=== PATIENT | male | born 1935 | race Caucasian/White ===

== ENCOUNTER 2016-11-28 03:18 | Observation (INO) | payer OTHER ==
--- NOTE | 2016-11-27 09:34 | History & Physical Pre-Op ---
General Information and HPI History of Present Illness: patient presents for evaluation of an inguinal hernia, right-sided. He also has a long-standing umbilical hernia which has been observed for many years. More recently has noted acute onset of extreme right inguinal pain associated with the bulge. His son is a nurse and instructed him to lie flat and put ice pack on it and it was able to be reduced on multiple occasions. He went to the emergency room at which time an ultrasound of his testicle was performed which showed a hydrocele. Subsequent evaluation by urologist revealed inguinal hernia as well as a hydrocele, is referred to our office for further management. Allergies/Medications Allergies: Coded Allergies: NO KNOWN ALLERGIES (06/13/16) Home Med list Aspirin (Ecotrin*) 81 MG TABLET.DR 1 TAB PO DAILY HEART/BLOOD (Reported) Diltiazem HCl (Cardizem Cd) 180 MG CAP.ER.24H 1 CAP PO DAILY Atrial Fibrillation/Flutter Finasteride 5 MG TABLET 1 TAB PO DAILY PROSTATE (Reported) Furosemide 20 MG TABLET 1 TAB PO BID DIURETIC (Reported) Latanoprost 2.5 ML DROPS 1 GTT OPH QPM BOTH EYES (Reported) Metoprolol Succinate 25 MG TAB 1 TAB PO BID HEART/BLOOD (Reported) Omeprazole 40 MG CAPSULE.DR 1 CAP PO DAILY GI (Reported) Spironolactone 25 MG TABLET 1 TAB PO DAILY DIURETIC (Reported) Tamsulosin HCl (Flomax) 0.4 MG CAP.ER.24H 1 CAP PO DAILY@2200 BPH Warfarin Sodium (Coumadin) 5 MG TABLET 1 TAB PO DAILY BLOOD THINNER (Reported ) Past History Medical History Neurological: ENCEPHALOPATHY EENT: NONE Cardiovascular: AFIB Respiratory: NONE Gastrointestinal: pancreatitis, GASTIC ULCER-RUPTURED january 2014 Hepatic: jaundice, LIVER FAILURE LIVER LESION Renal: acute tubular necrosis Musculoskeletal: degen joint disease, L HIP REPL Psychiatric: NONE Endocrine: NONE Blood Disorders: NONE Cancer(s): NONE 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 He reports urinary loss of control. He reports no fatigue, no fever, no night sweats, no significant weight gain, no significant weight loss, and no exercise intolerance. He reports no abnormal moles, no jaundice, no hives, no eczema, and no rashes. He reports no dry eyes, no irritation, no vision change, and no discharge. He reports no swollen glands and no neck stiffness. He reports no cough, no wheezing, no shortness of breath, and no coughing up blood. He reports no chest pain, no arm pain on exertion, no shortness of breath when walking, no shortness of breath when lying down, no palpitations, and no known heart murmur. He reports no muscle aches, no muscle weakness, no arthralgias/joint pain, and no back pain. Exam & Diagnostic Data Physical Exam: Patient is a 81-year-old male. Constitutional: General Appearance: healthy-appearing, well-nourished, and well- developed. Level of Distress: no acute distress. Ambulation: ambulating normally. Head: Head: normocephalic and atraumatic. Neck: Neck: supple, trachea midline, no masses, and full range of motion. Thyroid: no enlargement or nodules and non-tender. Lymph Nodes: no cervical LAD, supraclavicular LAD, axillary LAD, or inguinal LAD. Cardiovascular: Heart Auscultation: normal S1 and S2; no murmurs, rubs, or gallops; and regular rate and rhythm. Lungs: Respiratory effort: no dyspnea. Percussion: no dullness, flatness, or hyperresonance. Auscultation: no wheezing, rales/crackles, or rhonchi and breath sounds normal, good air movement, and clear to auscultation. Back: Thoracolumbar Appearance: normal curvature. Abdomen: Inspection and Palpation: no tenderness, guarding, masses, rebound tenderness, or CVA tenderness and soft and non-distended. Bowel Sounds: normal. Liver: non-tender and no hepatomegaly. Spleen: non-tender and no splenomegaly. Hernia: inguinal (small reducible right inguinal hernia. Separate, distinct moderate sized hydrocele of the right testicle) and periumbilical (reducible with 3 cm defect). Skin: Inspection and palpation: no rash, lesions, ulcer, induration, nodules, jaundice, or abnormal nevi and good turgor. Musculoskeletal:: Extremities: no cyanosis, edema, varicosities, or palpable cord. Motor Strength and Tone: normal tone and motor strength. Joints, Bones, and Muscles: no contractures, malalignment, tenderness, or bony abnormalities and normal movement of all extremities. Psychiatric: Insight: good judgement and insight. Mental Status: normal mood and affect and active and alert. Orientation: to time, place, and person. Memory: recent memory normal and remote memory normal. Assessment/Plan Assessment/Plan: 1. Right inguinal hernia - intermittent obstructive symptoms related to it warrants elective repair. Recommend laparoscopic right inguinal hernia repair with mesh K40.90: Unilateral inguinal hernia, without obstruction or gangrene, not specified as recurrent 2. Umbilical hernia - this hernia should be repaired concurrently to his inguinal hernia. Plan will be to repair open with mesh. K42.9: Umbilical hernia without obstruction or gangrene 3. Hydrocele - right sided. It is distinct from his inguinal hernia and treatment of it would require hydrocelectomy. Given his comorbidities and lack of symptoms related to it, needle aspiration and/or observation will be recommended N43.3: Hydrocele, unspecified Patient Instructions patient will need cardiac clearance. Family understands and will make arrangements to see his hand hardener for preoperative risk assessment. He will need to come off his Coumadin 5 days preoperatively. Discussion Notes Discussed laparoscopic preperitoneal hernia repair with mesh, the need for general anesthesia to perform it and the outpatient nature of surgery. Discussed the outcomes of surgery including 3-5% recurrence rate, 1% infection and bleeding risk. Discussed the permanent nature of mesh for repair and need for removal if infection occurs. Discussed the small risk of testicular vessel injury and vas deferens injury (males). Discussed the pathophysiology of umbilical hernia and the need for repair to prevent incarceration/ strangulation of bowel. Discussed the potential need for mesh placement depending on the size of the defect. Patient understands the perment nature of mesh. Discussed the risks of surgery including bleeding, infection and recurrence of the hernia. Discussed emergent complications of oberved hernias including increasing pain, distention, nausea and vomiting. Discussed erythema of hernia site as well. Patient understands to call me urgently or go to ER should these findings develop. As Ranked By This Provider Problem List: 1. Right inguinal hernia 2. Umbilical hernia without obstruction or gangrene 3. Hydrocele
[~2016-11-28] VITALS: Ht 177.8 cm; Wt 76.2 kg
[~2016-11-28 03:18] MED LIST: ASPIR 8181 MG PO; ASPIRIN EC81 M1 PO; AUGMENTIN 875875 MG PO; CARDIZEM CD180 M1 PO; CIPRO250 M1 PO; COUMADIN 4MG TAB4 MG PO; COUMADIN5 M2 PO; FINASTERIDE5 M1 PO; FLOMAX0.4 M1 PO; FUROSEMIDE20 M1 PO; LATANOPROST2.5 ML OPH; MAGNESIUM200 MG PO; METOPROLOL SUCC25 M1 PO; METOPROLOL SUCC25 MG PO; NIFEDICAL XL30 M1 PO; NIFEDIPINE30 MG PO; NORVASC5 M1 PO; OMEPRAZOLE40 M1 PO; OMEPRAZOLE40 MG PO; SPIRONOLACTONE25 M1 PO; TRAVATAN Z50 GTT/1 B OPH; WARFARIN SOD5 MG PO
[2016-11-28 06:59] LABS: PT 13.9 SEC (9.4-12.5)
--- NOTE | 2016-11-28 09:44 | Admission Core Measures ---
Admission Lab Results I reviewed the following labs: Laboratory Tests 11/28 0630 Coagulation PT (9.4 - 12.5 SEC) 13.9 H INR (0.90 - 1.17) 1.33 H Admission Meds I reviewed the following Meds: Current Medications Sig/Aurea Start time Last Medication Dose Stop Time Status Admin Cefazolin Sodium 2,000 MG ONCE 11/28 0000 NR (Kefzol-Ancef Inj) 11/28 2359 Acute Coronary Syndrome Inclusion Criteria ACS Diagnosis No Inpatient Core Measures LDL Reminder: If No, please order W/I first 24hr of stay Congestive Heart Failure Inclusion Criteria CHF Diagnosis No Cerebrovascular accident Inclusion Criteria CVA/TIA Diagnosis No Inpatient Core Measures Bedside Swallow Eval Reminder: If BSE failed, place ST order Antithrombotic Reminder: Order Antithrombotic Medication by end of day 2 Antithrombotic Reminder: Document Reason Antithrombotic Not ordered by end of day 2 AFIB/Flutter Reminder: If Present, add to problem list AFIB/Flutter Reminder: Order Anticoag Medication for pts with AFIB/Flutter Atherosclerosis Reminder: If Present, add to problem list LDL Reminder: If No, please order W/I first 24hr of stay PT Order Reminder: If No, please order Venous thromboembolism Inpatient Core Measures VTE Risk Factors: Age > 40 VTE Prophylaxis Ordered Inpt Mech & Pharm No Mech VTE prophylaxis d/t No contraindications No VTE Pharm Prophylaxis d/t No contraindications Inclusion Criteria - Per Current guidelines, there needs to be overlap - treatment for the first 5 days of Warfarin therapy. - Parenteral Anticoagulation (IV or SC) needs to be - given along with Warfarin therapy. VTE Diagnosis No VTE Type NONE VTE Confirmed by (Test) NONE Problem List As ranked by this Provider includes Assessment & Plan 1. New onset atrial fibrillation 2. S/P inguinal hernia repair using synthetic patch HOME MEDS Home Med List Aspirin (Ecotrin*) 81 MG TABLET.DR 1 TAB PO DAILY HEART/BLOOD (Reported) Diltiazem HCl (Cardizem Cd) 180 MG CAP.ER.24H 1 CAP PO DAILY Atrial Fibrillation/Flutter Finasteride 5 MG TABLET 1 TAB PO DAILY PROSTATE (Reported) Furosemide 20 MG TABLET 1 TAB PO BID DIURETIC (Reported) Latanoprost 2.5 ML DROPS 1 GTT OPH QPM BOTH EYES (Reported) Metoprolol Succinate 25 MG TAB 1 TAB PO BID HEART/BLOOD (Reported) Omeprazole 40 MG CAPSULE.DR 1 CAP PO DAILY GI (Reported) Spironolactone 25 MG TABLET 1 TAB PO DAILY DIURETIC (Reported) Tamsulosin HCl (Flomax) 0.4 MG CAP.ER.24H 1 CAP PO DAILY@2200 BPH Warfarin Sodium (Coumadin) 5 MG TABLET 1 TAB PO DAILY BLOOD THINNER (Reported )
[2016-11-28 12:50] VITALS: BP 138/70
--- NOTE | 2016-11-28 12:57 | Operative Report ---
Operative/Inv Procedure Report Surgery Date: 11/28/16 Name of Procedure: 1. Umbilical hernia repair with mesh 2. Laparoscopic right inguinal hernia repair Pre-Operative Diagnosis: Umbilical hernia Right inguinal hernia Post-Operative Diagnosis: Same same Estimated Blood Loss: scant Surgeon/Senior Gl Accountant: ROMAIN CRONIN,CHAS Diaz/Netta DALTON Anesthesia: general endotracheal tube Implants: Parietex right inguinal hernia mesh Ventrex umbilical hernia mesh Operative/Procedure Note Note: After consent is brought to the operating room and laid supine. Gen. anesthesia was obtained and his abdomen was prepped and draped. The skin below the umbilicus after local anesthesia transverse incision made sharply. We dissected down to the right-sided rectus fascia and incised transversely. Stay sutures placed. The rectus muscles retracted laterally and a plane behind it developed with a peanut. The dissecting balloon was then placed on the level of pubis and inflated under direct vision and camera. It was deflated and removed and replaced with a blunt Rueda port. Gas was instilled. 2, 5 mm ports were placed in from vocal midline after local anesthesia was instilled and under direct vision and camera. Began or dissection the pubis and delineated the symphysis. There is no direct hernia. We came laterally and developed the iliopubic tract. There is a very large indirect sac which was delivered and peeled off of the cord structures bluntly. It took quite a bit of dissection but eventually her to get the sac out as well as a large cord lipoma. We then placed a piece of Parietex keyhole mesh into the cavity. It was placed around the cord structures re-create a new internal ring. Cover the femoral indirect spaces. Once I was happy with the placement of mesh the gas was allowed to escape on maintaining proper orientation of it. The ports then removed and the fascia closed with 0 Vicryl suture. We then turned attention to the umbilical hernia. The periumbilical incision was lengthened and a curvilinear in fashion. The umbilical stalk was then circumvention dissected and transected with cautery. Were then able to expose a very large hernia sac. The fascial edges were incised down the neck of the hernia with cautery. The contents were then able to be reduced completely. Given the size the defect which approximated 2.5 cm, mesh repair was undertaken. Preperitoneal planes were circumferentially made bluntly. A 6.4 cm ventral X mesh was then placed in the cavity and unraveled below the defect. The fascia was closed over the mesh with interrupted 0 Maxon sutures while incorporating the anterior portion of the mesh to keep it centered. The wound was irrigated with normal saline. The umbilical stock was re-created 3-0 Vicryl. Skin incisions closed with 4-0 Vicryl. Steri- Strips and sterile dressing applied. Sponge and needle counts are correct CC: NETTA CRONIN,Gustavo ROPER; FAM CRONIN,IMMANUEL Fernandez
--- NOTE | 2016-11-28 15:03 | PN- General Surgery ---
Subjective Subjective: Awake, alert post op Pt speaks mostly Malay but has a family member at the bedside to help translate No complaints he is in no pain and denies any nausea He has already eaten a full tray of regular food without any pain or nausea +void Objective Vital Signs and I&Os Vital Signs Date Time Temp Pulse Resp B/P Pulse O2 O2 Flow FiO2 Ox Delivery Rate 11/28 1250 98.4 68 18 138/70 96 Room Air Intake & Output 11/28 1600 11/28 0800 11/28 0000 11/27 1600 11/27 0800 11/27 0000 Intake Total Output Total 100 Balance -100 Output, Urine 100 Patient 168 lb Weight Physical Exam: afebrile, vss General: alert and oriented times three Chest: clear anteriorly bilaterally, RRR Abd: soft, good bs, nondistended Wounds: dressed, dry Ext: warm, no edema Current Medications: Current Medications Sig/Aurea Start time Last Medication Dose Route Stop Time Status Admin Aspirin Buffered 81 MG DAILY 11/29 1000 AC PO Bupivacaine HCl/ 10 ML .STK-MED ONE 11/28 0932 DC Epinephrine Bitart SC 11/28 0933 Cefazolin Sodium 2,000 MG ONCE 11/28 0000 DC IV 11/28 2359 Diltiazem HCl 180 MG DAILY 11/29 1000 AC PO Docusate Sodium 100 MG DAILY NEEDED PRN 11/28 1215 AC PO Finasteride 5 MG DAILY 11/29 1000 AC PO Furosemide 20 MG BID 11/28 2200 AC PO Metoprolol Tartrate 25 MG BID 11/28 2200 AC PO Morphine Sulfate 2 MG Q3P PRN 11/28 1215 AC IV Omeprazole 40 MG DAILY AC 11/29 0700 AC PO Ondansetron HCl 4 MG Q8P PRN 11/28 1215 AC IV Oxycodone/ 1 TAB Q4P PRN 11/28 1215 AC Acetaminophen PO Oxycodone/ 2 TAB Q4P PRN 11/28 1215 AC Acetaminophen PO Sodium Chloride 1,000 ML .Q20H 11/28 1215 AC 11/28 IV 1306 Spironolactone 25 MG DAILY 11/29 1000 AC PO Tamsulosin HCl 0.4 MG DAILY@2200 11/28 2200 AC PO Warfarin Sodium 5 MG COUMADIN 1700 ONE 11/28 1700 AC PO 11/28 1701 Assessment/Plan Assessment/Plan 81 yo male s/p lap RIH, umbilical hernia repair Regular diet pain mgmt dc IVF tele overnight per Dr Reyna coumadin restarted plan to dc in am if all ok overnight Core Measures/Miscellaneous Venous Thromboembolism VTE Risk Factors: Age > 40, Surgery VTE Contraindications: No Contraindications VTE Prophylaxis Ordered Inpt Mech & Pharm VTE Diagnosis: No VTE Type: NONE VTE Confirmed by (Test): NONE Beta Tara Is Beta Tara a Home Med? Yes If Yes, Was This Ordered Today? No Antibiotics Is Patient on Antibiotics? No
--- NOTE | 2016-11-28 15:06 | Patient Discharge Instructions ---
Discharge Instructions General Discharge Information You were seen/treated for: Inguinal hernia and umbilical hernia You had these procedures: Lap Right inguinal hernia repair, Umbilical hernia repair - both with mesh Watch for these problems: temp>101, increased redness or drainage of wounds, increased abdominal pain No bath, but you may shower: Yes Other wound care: Keep wounds clean and dry, may shower but no bathing or soaking Special Instructions: Follow up with an INR on Sunday 12/03, results to Dr Reyna - coumadin dosing will be determined by Dr Reyna. Take your regular dose of 5 mg daily until then. Diet Recommended Diet: Heart Healthy Activity Activity Self Limited: Yes Pounds, do NOT lift more than: 10 Acute Coronary Syndrome Inclusion Criteria At DC or during hospital stay patient has or had the following: ACS DIAGNOSIS No Discharge Core Measures Meds if any: Prescribed or Continued at Discharge Meds if any: NOT Prescribed or Continued at Discharge Congestive Heart Failure Inclusion Criteria At DC or during hospital stay patient has or had the following: CHF DIAGNOSIS No Discharge Core Measures Meds if any: Prescribed or Continued at Discharge Meds if any: NOT Prescribed or Continued at Discharge Cerebrovascular accident Inclusion Criteria At DC or during hospital stay patient has or had the following: CVA/TIA Diagnosis No Discharge Core Measures Meds if any: Prescribed or Continued at Discharge Meds if any: NOT Prescribed or Continued at Discharge Venous thromboembolism Inclusion Criteria VTE Diagnosis No VTE Type NONE VTE Confirmed by (Test) NONE Discharge Core Measures - Per Current guidelines, there needs to be overlap - treatment for the first 5 days of Warfarin therapy. - If discharged on Warfarin prior to 5 days of - overlap therapy, the patient will need to be - assessed for post discharge needs including - *Post discharge parental anticoagulation - *Warfarin and/or parental anticoagulation education - *Follow up date to check INR post discharge At least 5 days overlap therapy as Inpatient No Meds if any: Prescribed or Continued at Discharge Note: Overlap Therapy is Warfarin and Anticoagulant Meds if any: NOT Prescribed or Continued at Discharge
[2016-11-28] MEDS ORDERED: PERCOCET 5-3251 EACH PO (15:08)
[2016-11-28 15:47] VITALS: BP 130/72
[2016-11-28 20:55] VITALS: BP 142/66
[2016-11-28 22:41] VITALS: BP 124/66
[2016-11-29 08:28] LABS: PT 14.3 SEC (9.4-12.5)
[2016-11-29 08:40] VITALS: BP 132/69
--- NOTE | 2016-11-29 09:29 | PN- General Surgery ---
See Addendum Subjective Subjective: Awake, alert No complaints overnight Pain well controlled No bm but he feels like he needs to have one Objective Vital Signs and I&Os Vital Signs Date Time Temp Pulse Resp B/P Pulse O2 O2 Flow FiO2 Ox Delivery Rate 11/29 0840 98.7 72 16 132/69 96 Room Air 11/28 2241 99.1 73 18 124/66 96 Room Air 11/28 2055 99 142/66 11/28 2049 99 142/66 11/28 2049 99 142/66 11/28 1547 98.7 70 18 130/72 96 Room Air 11/28 1250 98.4 68 18 138/70 96 Room Air Intake & Output 11/29 1600 11/29 0800 11/29 0000 11/28 1600 11/28 0800 11/28 0000 Intake Total 360 700 Output Total 450 450 100 Balance -90 250 -100 Intake, IV 100 Intake, Oral 360 600 Output, Urine 450 450 100 Patient 168 lb Weight Physical Exam: Tmax 99.1 all other vss General: alert and oriented times three Chest: clear anteriorly bilaterally, RRR Abd: softly distended, good bs in all quadrants Wounds: dressed, dry Ext: warm, no edema Assessment/Plan Assessment/Plan 81 yo male s/p lap right inguinal hernia and umbilical hernia repair -- overnight for cardiac monitoring Post op EKG stable Tele stable overnight Spoke with Dr Reyna- he will be by shortly Spoke with Dr Mirza - dc home if ok with Dr Reyna, follow up 10-14 days Instructions given Pain meds - percocet Coumadin restarted - INR 1.37 today, will order at dc per Dr Reyna, to follow up INR on 12/03 Core Measures/Miscellaneous Venous Thromboembolism VTE Risk Factors: Age > 40, Surgery VTE Contraindications: No Contraindications VTE Prophylaxis Ordered Inpt Mech & Pharm VTE Diagnosis: No VTE Type: NONE VTE Confirmed by (Test): NONE Beta Tara Is Beta Tara a Home Med? Yes If Yes, Was This Ordered Today? No Antibiotics Is Patient on Antibiotics? No
[2016-11-29 09:54] VITALS: BP 128/64
--- NOTE | 2016-11-29 12:31 | PN- Cardiology ---
Subjective Subjective: Doing well day 1 post op. No significant arrhythmias. No significant tachycardia. No new CV symptoms. OOB without difficulty Objective Vital Signs and I&Os Vital Signs Date Time Temp Pulse Resp B/P Pulse O2 O2 Flow FiO2 Ox Delivery Rate 11/29 0954 74 128/64 11/29 0840 98.7 72 16 132/69 96 Room Air 11/28 2241 99.1 73 18 124/66 96 Room Air 11/28 2055 99 142/66 11/28 2049 99 142/66 11/28 2049 99 142/66 11/28 1547 98.7 70 18 130/72 96 Room Air 11/28 1250 98.4 68 18 138/70 96 Room Air Intake & Output 11/29 1600 11/29 0800 11/29 0000 11/28 1600 11/28 0800 11/28 0000 Intake Total 360 700 Output Total 450 450 100 Balance -90 250 -100 Intake, IV 100 Intake, Oral 360 600 Output, Urine 450 450 100 Patient 168 lb Weight Current Medications: Current Medications Sig/Aurea Start time Last Medication Dose Route Stop Time Status Admin Aspirin Buffered 81 MG DAILY 11/29 1000 AC 11/29 PO 0955 Diltiazem HCl 180 MG DAILY 11/29 1000 AC 11/29 PO 0955 Docusate Sodium 100 MG DAILY NEEDED PRN 11/28 1215 AC PO Finasteride 5 MG DAILY 11/29 1000 AC 11/29 PO 0955 Furosemide 20 MG BID 11/28 2200 AC 11/29 PO 0955 Metoprolol Tartrate 25 MG BID 11/28 2200 AC 11/29 PO 0954 Morphine Sulfate 2 MG Q3P PRN 11/28 1215 AC 11/29 IV 0638 Omeprazole 40 MG DAILY AC 11/29 0700 AC 11/29 PO 0639 Ondansetron HCl 4 MG Q8P PRN 11/28 1215 AC IV Oxycodone/ 1 TAB Q4P PRN 11/28 1215 AC 11/29 Acetaminophen PO 0840 Oxycodone/ 2 TAB Q4P PRN 11/28 1215 AC Acetaminophen PO Sodium Chloride 1,000 ML .Q20H 11/28 1215 DC 11/28 IV 1306 Spironolactone 25 MG DAILY 11/29 1000 AC 11/29 PO 0955 Tamsulosin HCl 0.4 MG DAILY@2200 11/28 2200 AC 11/28 PO 2049 Warfarin Sodium 5 MG COUMADIN 1700 ONE 11/28 1700 DC 11/28 PO 11/28 1701 1622 Results Last 48 Hrs of Labs/Mics: Laboratory Tests 11/29/16 0630: Anion Gap 10, Estimated GFR > 60, BUN/Creatinine Ratio 30.0 H, PT 14.3 H, INR 1.37 H 11/28/16 0630: PT 13.9 H, INR 1.33 H Assessment/Plan Assessment/Plan Assessment: 1. Day #1 post op hernia repair 2. Ventricular ectopy 3. Atrial fibrillation 4. CAD Recommendations: - The patient continues to do well post operatively - No significant arrhythmias noted. - Discussed with family and the surgical service. - The patient is stable for discharge from a CV standpoint. Continue current regimen. Continue regular warfarin dosage. Followup INR saturday. - Followup with me in the office in a few weeks. Continue telemetry? No
== END 2016-11-29 13:45 ==
LOC: ENRESERVDT → ENRESERVTM → STS 03:18 → PACUH 09:30 → 1NO 09:30 → ENPENDDIS 09:30 → 1NO 12:03
PROVIDERS: Physician Assistant Surgical; ADMIT Surgery
DX: K40.30 Unilateral inguinal hernia, with obstruction, without gangrene, not specified as recurrent (principal); K42.9 Umbilical hernia without obstruction or gangrene; N43.3 Hydrocele, unspecified; D64.9 Anemia, unspecified; I10 Essential (primary) hypertension; I73.9 Peripheral vascular disease, unspecified; I27.2 Other secondary pulmonary hypertension; K21.9 Gastro-esophageal reflux disease without esophagitis; N40.0 Benign prostatic hyperplasia without lower urinary tract symptoms; I48.91 Unspecified atrial fibrillation; E78.5 Hyperlipidemia, unspecified; Z79.01 Long term (current) use of anticoagulants
CPT/HCPCS: 2000; 36415; 82436; 93005; 93010; C1781; G0378; J0131; J0690; J2405